=== PATIENT | female | born 1990 | race Caucasian/White ===

== ENCOUNTER 2021-07-31 16:06 | Emergency (ER) | payer OTHER ==
[~2021-07-31 16:06] MED LIST: MOTRIN600 MG PO; PRENATAL FORMU1 EACH PO
[2021-07-31] MEDS ORDERED: PEPCID AC20 MG PO (16:54)
[2021-07-31] MEDS ORDERED: ONDANSETRON ODT4 MG PO (16:54)
== END 2021-07-31 17:25 | disposition home or self-care (01) ==
LOC: FER 16:06
DX: K21.00 Gastro-esophageal reflux disease with esophagitis, without bleeding (principal)
CPT/HCPCS: 93005